=== PATIENT | female | born 1980 | race Caucasian/White ===

== ENCOUNTER 2017-03-12 01:43 | Emergency (ER) | payer BC ==
[2017-03-12] MEDS ORDERED: SODIUM CHLORIDE 0.9% 1,000 ML IV ONE (02:03)
[2017-03-12] MEDS ORDERED: diphenhydrAMINE 50 MG/ML 1 ML VIAL IVP STA (02:03)
[2017-03-12] MEDS ORDERED: METOCLOPRAMIDE 5 MG/ML 2 ML VIAL IVP STA (02:03)
[2017-03-12] MEDS ORDERED: KETOROLAC 30 MG/ML 1 ML VIAL IVP STA (02:03)
--- NOTE | 2017-03-12 02:09 | ED ---
Headache HPI - General Chief Complaint: Headache Stated Complaint: Migrane/nausea Time Seen by Provider: 03/12/17 01:54 Mode of arrival: ambulatory Limitations: no limitations - History of Present Illness Initial Comments: 37-year-old female patient present to emergency department today for complaints of migraine headache 3 days. Patient states that she does have a seven-year history of migraine headache. She states that her symptoms today are typical of her usual migraine pattern. She states that the pain has gradually worsened over the last 3 days. She states that she has pain in the occipital region that radiates forward into her eyes and face. She states that she has nausea, photosensitivity, and sound sensitivity. She states she does have flashes in her vision. Patient denies any recent fever, chills, shortness breath, chest pain, vomiting, diarrhea, back pain, numbness, tingling, dizziness, weakness, hematuria, dysuria, urinary urgency, urinary frequency, headache, or any other complaints. Patient states that she also has been constipated, has a flareup of her hemorrhoids, but is managing these conditions at home and is seeking treatment only for her migraine. - Related Data Home Medications Medication Instructions Recorded Confirmed No Known Home Medications [No 03/12/17 03/12/17 Known Home Medications] Allergies Allergy/AdvReac Type Severity Reaction Status Date / Time No Known Allergies Allergy Verified 03/12/17 01:52 Review of Systems ROS Statement: Those systems with pertinent positive or pertinent negative responses have been documented in the HPI. ROS Other: All systems not noted in ROS Statement are negative. Past Medical History Past Medical History: Hypertension History of Any Multi-Drug Resistant Organisms: None Reported Additional Past Surgical History / Comment(s): bilateral arthroscopic knee surgery. renal stent. Past Psychological History: No Psychological Hx Reported Smoking Status: Former smoker Past Alcohol Use History: None Reported Past Drug Use History: None Reported General Exam Limitations: no limitations Course Vital Signs 03/12/17 03/12/17 01:48 03:18 Temperature 97.6 F 97.8 F Pulse Rate 84 67 Respiratory 16 18 Rate Blood Pressure 179/111 131/75 O2 Sat by Pulse 98 96 Oximetry Medical Decision Making - Medical Decision Making 37-year-old male patient presented with chief complaint migraine headache. Patient symptoms are consistent with her usual migraine pattern. Patient states that nothing she takes at home [id number] works for her headaches. She was given IV fluids, Benadryl, Toradol, and Reglan for pain which did improve her symptoms. Patient is now rating her pain at a 1 out of 10 on the scale. Patient states that she is ready to go home and get some rest. She is instructed father primary care physician for recheck 1-2 days. She is instructed to return here immediately for any new, worsening, or concerning symptoms. She verbalizes understanding and agrees with this plan. Disposition Clinical Impression: Migraine headache Disposition: HOME SELF-CARE Condition: Good Instructions: Migraine Headache (ED) Additional Instructions: Increase fluids. Follow up with your primary care physician for recheck in 1-2 days. Return here immediately for any new, worsening, or concerning symptoms. Referrals: Roger Tarango DO [Primary Care Provider] - 1-2 days Time of Disposition: 03:19
[2017-03-12 03:23] VITALS: BP 131/75; PULSE 67; RESP 18; TEMP 97.8
== END 2017-03-12 03:27 | disposition home or self-care (01) ==
LOC: EC 01:43
DX: G43.909 Migraine, unspecified, not intractable, without status migrainosus (principal); R11.0 Nausea; Z87.891 Personal history of nicotine dependence
CPT/HCPCS: 99283; 96374; 96375 ×2; 96361; J1200; J2765; J1885

== ENCOUNTER → 2017-09-28 | Outpatient (CLI) | payer BC ==
--- NOTE | 2017-09-28 15:58 | XR ---
EXAMINATION TYPE: XR knee complete RT DATE OF EXAM: 09/28/2017 COMPARISON: NONE HISTORY: Pain TECHNIQUE: Four views are submitted. FINDINGS: There is mild diffuse osteopenia. Narrowing of the medial compartment of the knee joint seen. Small a mount of fluid in the suprapatellar bursa. No erosive changes. IMPRESSION: 1. Small amount of fluid in the suprapatellar bursa. 2. Mild arthritic changes.
--- NOTE | 2017-09-28 15:59 | XR ---
EXAMINATION TYPE: XR shoulder complete RT DATE OF EXAM: 09/28/2017 COMPARISON: NONE HISTORY: Pain TECHNIQUE: Three views are submitted. FINDINGS: The osseous structures are intact. There is no acute fracture or dislocation. The AC joint is maint ained. IMPRESSION: 1. No acute process.
== END | disposition home or self-care (01) ==
LOC: RADXRYALE 15:05
PROVIDERS: ATTEND Physician Assistant Medical
DX: M17.11 Unilateral primary osteoarthritis, right knee (principal); M25.511 Pain in right shoulder

== ENCOUNTER → 2018-05-01 | Outpatient (CLI) | payer OTHER ==
--- NOTE | 2018-05-01 10:19 | MM ---
Reason for exam: screening (asymptomatic). Baseline mammogram. Physical Findings: Nurse did not find any significant physical abnormalities on exam. MG Screening Mammo w CAD Bilateral CC and MLO view(s) were taken. There are scattered fibroglandular densities. Finding #1: There is a typically benign equal density (isodense), circumscribed oval mass located 15 cm from the nipple in the upper outer quadrant, middle position of the left breast. Finding #2: There are typically benign spherical calcifications in both breasts. Lymph node upper outer quadrant right breast. These results were verbally communicated with the patient and result sheet given to the patient on 05/01/18. ASSESSMENT: Probably benign, BI-RAD 3 RECOMMENDATION: Follow-up diagnostic mammogram of the left breast in 6 months.
== END | disposition home or self-care (01) ==
LOC: RADMAMWWP 09:33
PROVIDERS: ATTEND Family Medicine
DX: Z12.31 Encounter for screening mammogram for malignant neoplasm of breast (principal)
CPT/HCPCS: 77067

== ENCOUNTER → 2018-12-01 | Outpatient (CLI) | payer OTHER ==
[2018-12-01 09:56] LABS: Basophils % (A) 1 %; Eosinophils # (A) 0.1 k/uL (0-0.7); Eosinophils % (A) 1 %; HCT 42.4 % (34.0-46.0); HGB 13.5 gm/dL (11.4-16.0); Lymphocytes # (A) 1.8 k/uL (1.0-4.8); Lymphocytes % (A) 26 %; MCH 28.8 pg (25.0-35.0); MCHC 31.8 g/dL (31.0-37.0); MCV 90.4 fL (80.0-100.0); Mean Platelet Volume 6.8; Monocytes # (A) 0.4 k/uL (0-1.0); Monocytes % (A) 6 %; Neutrophils # (A) 4.7 k/uL (1.3-7.7); Neutrophils % (A) 65 %; Platelet Count 316 k/uL (150-450); RBC 4.69 m/uL (3.80-5.40); RDW 13.7 % (11.5-15.5); WBC 7.1 k/uL (3.8-10.6)
== END ==
LOC: LABPAT 09:20
PROVIDERS: ATTEND Orthopaedic Surgery
DX: Z01.812 Encounter for preprocedural laboratory examination (principal); M23.91 Unspecified internal derangement of right knee
CPT/HCPCS: 80051; 85025

== ENCOUNTER 2018-12-14 09:47 | Day surgery (SDC) | payer OTHER ==
[2018-12-11 09:47] VITALS: BMI 37.5
--- NOTE | 2018-12-13 09:17 | HP ---
HISTORY AND PHYSICAL CHIEF COMPLAINT: Right knee pain. 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 She notes pain and catching along with giving way. She notes it does limit her normal activities. She has tried medications and injections with only partial temporary relief. She does have a history of arthroscopy 18 years ago. PAST MEDICAL HISTORY: Significant for asthma. PAST SURGICAL HISTORY: Significant for bilateral knee arthroscopy. CURRENT MEDICATIONS: Current medications include inhalers. ALLERGIES: She denies drug allergies. FAMILY HISTORY: Significant for cancer. SOCIAL HISTORY: Negative for current tobacco or alcohol use. REVIEW OF SYSTEMS: Sixteen-point review of systems otherwise reviewed and is noncontributory. PHYSICAL EXAMINATION: On examination, the patient is approximately 5 feet, 8 inches, 240 pounds of endomorphic habitus. HEENT exam is nonfocal. Neck is supple. She has painless passive motion of the right hip. Straight leg raise is negative. Active motion right knee -6 to 130 degrees of flexion. She is tender about the lateral joint line and lateral patellar facet. Collaterals are stable, Jarek's negative, Linda's is equivocal. She has some pain with patellofemoral compression. Patellar glide 2 quadrants medial and lateral. Tilt is +5. MRI report for the right knee shows evidence of a patellar chondral injury and degenerative changes in the patellofemoral compartment. IMPRESSION: Internal derangement right knee with possible patellar chondral injury-symptomatic. RECOMMENDATIONS: I talked to the patient at length regarding her condition along with treatment options. At this point, she is having persistent pain and mechanical symptoms despite adequate conservative measures. After thorough discussion, she opts to proceed with surgery. We will plan to proceed with surgical intervention. We will plan to proceed with arthroscopic evaluation with possible patellar chondroplasty. Risks and benefits were discussed at length in layman's terms. We will likely perform that as outpatient procedure. MMODL / IJN: [id number] /
[~2018-12-14 09:47] MED LIST: DEXAMETHASONE SOD PHOSPHATE 10 MG/ML 1 ML VIAL IV ONE; LACTATED RINGERS 1,000 ML IV SCH; MIDAZOLAM 2 MG/2 ML VIAL IV PRN; ONDANSETRON 4 MG/2 ML VIAL IVP ONE; SCOPOLAMINE 1.5MG/72HR PATCH TRANSDERM ONE; ceFAZolin IN SWFI 2 GM/20 ML SYRINGE IVP ONE
[2018-12-14 10:06] VITALS: RESP 16; TEMP 98.4
[2018-12-14] MEDS ORDERED: LIDOCAINE 1% 20 ML VIAL (10MG/ML) FOR IV START INTRADERMA ONE (10:11)
[2018-12-14] MEDS ORDERED: PROPOFOL 10 MG/ML 20 ML VIAL IV ONE (11:32)
[2018-12-14] MEDS ORDERED: LIDOCAINE 1% INJ 10MG/ML (20 ML MDV) ONE (11:32)
[2018-12-14] MEDS ORDERED: fentaNYL (PF) 50 MCG/ML 2 ML AMP ONE (11:32)
[2018-12-14] MEDS ORDERED: MIDAZOLAM 2 MG/2 ML VIAL ONE (11:32)
[2018-12-14] MEDS ORDERED: EPINEPHrine (PF) 1 ML in SODIUM CHLORIDE 0.9% IRRIGATIO 3,000 ML IRRIGATION ONE ×4 (11:53)
--- NOTE | 2018-12-14 12:19 | P.OP ---
Date of Procedure: 12/14/18 Preoperative Diagnosis: Right knee internal derangement Postoperative Diagnosis: Right knee grade 2 chondral injury lateral portion medial tibial plateau/grade 3/4 chondral injury lateral patella facet/reactive synovitis of the medial, lateral, and patellofemoral compartments Procedure(s) Performed: Right knee arthroscopic medial tibial chondrectomy, patellar chondroplasty, partial synovectomy of the medial, lateral, and patellofemoral compartments. Anesthesia: GETA Surgeon: Abhijeet Fox Estimated Blood Loss (ml): 10 Pathology: none sent Condition: stable Disposition: PACU Indications for Procedure: Patient's a 38-year-old female who presents with progressive right knee pain and mechanical symptoms despite conservative measures. A discussion the risks and benefits of operative intervention versus continued conservative measures. She opted to proceed with surgery. Operative risks to include infection, neurovascular injury, development of blood clots, possible incomplete resolution of symptoms, possible worsening symptoms and need for subsequent procedures was discussed. Informed consent was obtained. Operative Findings: As below Description of Procedure: The patient was brought to the operating room, and after induction of general anesthesia examined the right knee. Collaterals were stable, Jarek was negative, and posterior drawer was negative. The right lower extremity was prepped and draped in a normal fashion. A superior lateral portal was made through a 3 mm skin incision superior and lateral to the patella. This was used for outflow. A lateral portal was made through a 5 mm vertical skin incision lateral to the patella tendon above the joint line. Diagnostic arthroscopy was performed. On inspection of the medial compartment, no significant meniscal pathology was noted. Reactive synovitis involving the anterior medial compartment was debrided with a motorized shaver. A grade 3 chondral injury was noted involving the lateral portion of the medial tibial plateau. There was a loose chondral fragment that was debrided back to a stable base with a motorized shaver. On inspection of the notch, the anterior cruciate ligament appeared to be intact. On inspection of the lateral compartment no significant meniscal pathology was noted. There was reactive synovitis in the anterolateral compartment there was debrided with a motorized shaver. On inspection of the patellofemoral articulation, a grade 3/4 chondral injury was noted involving lateral patellar facet. There was a loose chondral fragment debrided back with a motorized shaver to a stable base. Reactive synovitis involving the patellofemoral articulation was debrided with a motorized shaver. The gutters were clear debris. The knee was then thoroughly irrigated. The portals were closed with Steri-Strips. A sterile dressing was applied in addition to a compression stocking. The patient was awoken from general anesthesia and transferred to recovery room in good condition. Blood loss was estimated at 10 mL. No complications were incurred.
[2018-12-14] MEDS: HYDROmorphone 0.5 MG/0.5 ML SYRINGE IVP PRN ×4 (12:30→12:52)
[2018-12-14] MEDS ORDERED: MEPERIDINE 50 MG/ML SYRINGE IVP ONE (13:01)
[2018-12-14] MEDS ORDERED: HYDROcodone/APAP 5-325MG 1 EACH TAB PO ONE (13:48)
[2018-12-14 14:13] VITALS: BP 133/84; PULSE 73
== END 2018-12-14 14:33 | disposition home or self-care (01) ==
LOC: OR 09:47
PROVIDERS: ATTEND Orthopaedic Surgery
DX: S89.91XA Unspecified injury of right lower leg, initial encounter (principal); M65.861 Other synovitis and tenosynovitis, right lower leg; M17.11 Unilateral primary osteoarthritis, right knee; G43.909 Migraine, unspecified, not intractable, without status migrainosus; J45.909 Unspecified asthma, uncomplicated; Z87.891 Personal history of nicotine dependence; Z79.899 Other long term (current) drug therapy; Z87.442 Personal history of urinary calculi
CPT/HCPCS: 81025; 29876; J2250; J2175; J0171; J2001; J3010; J2704; J1170; J0690

== ENCOUNTER → 2018-12-20 | Outpatient (CLI) | payer OTHER ==
--- NOTE | 2018-12-21 09:09 | MM ---
Reason for exam: follow-up at short interval from prior study. Last mammogram was performed 8 months ago. Physical Findings: Nurse Summary: 1cm nodule in the right breast at 11 o'clock (nurse mj). MG Diagnostic Mammo LT w CAD CC, MLO, and XCCM view(s) were taken of the left breast. Prior study comparison: May 01, 2018, bilateral MG screening mammo w CAD. There are scattered fibroglandular densities. Benign appearing calcifications in the left breast. Left intrammary lymph nodes. These results were verbally communicated with the patient and result sheet given to the patient on 12/20/18. ASSESSMENT: Incomplete: need additional imaging evaluation, BI-RAD 0 RECOMMENDATION: Ultrasound. (right palpable per nursing)
--- NOTE | 2018-12-21 09:10 | USB ---
Reason for exam: additional evaluation requested from abnormal screening. US Breast Limited RT Right limited breast ultrasound including focal area of concern, retroareolar and axilla demonstrates a 0.5 x 0.3 x 0.4cm hypoechoic lesion at 11 o'clock. Minimal increase through transmission suggesting a small cyst. Precautionary 6 month follow up will be performed. These results were verbally communicated with the patient and result sheet given to the patient on 12/20/18. ASSESSMENT: Probably benign, BI-RAD 3 RECOMMENDATION: Follow-up diagnostic mammogram of both breasts in 6 months. Back on schedule. Ultrasound of the right breast in 6 months.
== END | disposition home or self-care (01) ==
LOC: RADMAMWWP 15:15
DX: R92.8 Other abnormal and inconclusive findings on diagnostic imaging of breast (principal)
CPT/HCPCS: 77065

== ENCOUNTER → 2019-06-21 | Outpatient (CLI) | payer OTHER ==
--- NOTE | 2019-06-21 09:30 | MM ---
Reason for exam: follow-up at short interval from prior study. Last mammogram was performed 6 months ago. Physical Findings: Nurse did not find any significant physical abnormalities on exam. MG Diagnostic Mammo w CAD DAVID Bilateral CC and MLO view(s) were taken. Prior study comparison: December 20, 2018, left breast MG diagnostic mammo LT w CAD. May 01, 2018, bilateral MG screening mammo w CAD. There are scattered fibroglandular densities. There are benign appearing round dystrophic calcifications bilaterally. There is chronic nodularity bilaterally. There is no new dominant lesion. These results were verbally communicated with the patient and result sheet given to the patient on 06/21/19. ASSESSMENT: Benign, BI-RAD 2 RECOMMENDATION: Routine screening mammogram of both breasts in 1 year.
--- NOTE | 2019-06-21 09:32 | USB ---
Reason for exam: follow-up at short interval from prior study. US Breast Limited RT Right limited breast ultrasound including focal area of concern, retroareolar and axilla demonstrates no cystic or solid lesion seen. These results were verbally communicated with the patient and result sheet given to the patient on 06/21/19. ASSESSMENT: Negative, BI-RAD 1 RECOMMENDATION: Routine screening mammogram of both breasts in 1 year.
== END | disposition home or self-care (01) ==
LOC: RADMAMWWP 08:03
DX: R92.8 Other abnormal and inconclusive findings on diagnostic imaging of breast (principal)
CPT/HCPCS: 77066

== ENCOUNTER 2019-07-18 14:54 | Emergency (ER) | payer OTHER ==
[2019-07-18 15:31] VITALS: TEMP 98.7
[2019-07-18] MEDS ORDERED: SODIUM CHLORIDE 0.9% 1,000 ML IV STA (17:31)
[2019-07-18] MEDS ORDERED: KETOROLAC 30 MG/ML 1 ML VIAL IVP STA (17:31)
[2019-07-18] MEDS ORDERED: diphenhydrAMINE 50 MG/ML 1 ML VIAL IVP STA (17:31)
[2019-07-18] MEDS ORDERED: METOCLOPRAMIDE 5 MG/ML 2 ML VIAL IVP STA (17:31)
--- NOTE | 2019-07-18 19:14 | ED ---
General Adult HPI - General Chief complaint: Headache Stated complaint: migraine Time Seen by Provider: 07/18/19 16:54 Source: patient, RN notes reviewed, old records reviewed Mode of arrival: ambulatory Limitations: no limitations - History of Present Illness Initial comments: 39-year-old female patient with past history of migraine headaches been signifi cantly migraine headache. Patient reported had a migraine headache for approximately last 3 days. Denies any headache of life. Denies any red flag symptoms. Reports that symptoms identical to migraine headaches of the past. Describes it as a left frontal headache. Denies a chance of being . Reports that she has had a mild waxing and waning aoura.. Systemic: Pt denies fatigue, fever/chills, rash. Pt denies weakness, night sweats, weight loss. Neuro: Pt denies syncope or pre-syncope. HEENT: Pt denies ocular discharge or irritation, otalgia, rhinorrhea, pharyngitis or notable lymphadenopathy. Cardiopulmonary: Pt denies chest pain, SOB, heart palpitations, dyspnea on exertion. Abdominal/GI: Pt denies abdominal pain, n/v/d. : Pt denies dysuria, burning w/ urination, frequency/urgency. Denies new onset urinary or bowel incontinence. MSK: Pt denies myalgia, loss of strength or function in extremities. Neuro: Pt denies new onset weakness, paresthesias. - Related Data Home Medications Medication Instructions Recorded Confirmed Azelastine HCl [Astepro] 1 spray NASAL DAILY 12/11/18 12/11/18 Cholecalciferol (Vitamin D3) 2,000 unit PO DAILY 12/11/18 12/11/18 [Vitamin D3] Mometasone/Formoterol [Dulera 200 1 dose INHALATION DAILY 12/11/18 12/11/18 Mcg/5 Mcg Inhaler] Propranolol- Dose Unknown 1 each PO DAILY 12/11/18 Previous Rx's Medication Instructions Recorded Hydrocodone/Acetaminophen [[place] 1 each PO Q6HR PRN #21 tab 12/14/18 5-325] Allergies Allergy/AdvReac Type Severity Reaction Status Date / Time Poultry Allergy Anaphylaxis Verified 12/14/18 09:59 Review of Systems ROS Statement: Those systems with pertinent positive or pertinent negative responses have been documented in the HPI. ROS Other: All systems not noted in ROS Statement are negative. Past Medical History Past Medical History: Hypertension History of Any Multi-Drug Resistant Organisms: None Reported Additional Past Surgical History / Comment(s): bilateral arthroscopic knee surgery. renal stent. Past Psychological History: No Psychological Hx Reported Smoking Status: Never smoker Past Alcohol Use History: Occasional Past Drug Use History: None Reported General Exam - General Exam Comments Initial Comments: Constitutional: NAD, AOX3, Pt has pleasant affect. HEENT: NC/AT, trachea midline, neck supple, no lymphadenopathy. Posterior pharynx non erythematous, without exudates. External ears appear normal, without discharge. Mucous membranes moist. Eyes PERRLA, EOM intact. There is no scleral icterus. No pallor noted. Cardiopulmonary: RRR, no murmurs, rubs or gallops, no JVD noted. Lungs CTAB in anterior and posterior dumont. No peripheral edema. Abdominal exam: Abdomen soft and non-distended. Abdomen non-tender to palpation in all 4 quadrants. Bowel sounds active in LLQ. No hepatosplenomegaly. No ecchymosis Neuro: CN II-XII intact. No nuchal rigidity. No raccon eyes, no bauman sign, no hemotympanum. No cervical spinal tenderness. NIH 0. MSK: No posterior calf tenderness bilaterally, homans sign negative bilaterally. Posterior tibialis and radial pulse +2 bilaterally. Sensation intact in upper and lower extremities. Full active ROM in upper and lower extremities, 5/5 stregnth. Limitations: no limitations Course Vital Signs 07/18/19 15:30 Temperature 98.7 F Pulse Rate 89 Respiratory 20 Rate Blood Pressure 129/96 O2 Sat by Pulse 98 Oximetry Medical Decision Making - Medical Decision Making 39-year-old female patient with past history of migraine headaches been significantly migraine headache. Patient reported had a migraine headache for approximately last 3 days. Denies any headache of life. Denies any red flag symptoms. Reports that symptoms identical to migraine headaches of the past. Describes it as a left frontal headache. Denies a chance of being . Reports that she has had a mild waxing and waning aoura. Pt VSS, afebrile. Physical exam displayed: CN II-XII intact. No nuchal rigidity. No raccon eyes, no bauman sign, no hemotympanum. No cervical spinal tenderness. NIH 0. Patient declined intracranial imaging. Patient administered headache cocktail which resolved headache. Patient is uncomfortable for discharge. We'll discharge her follow up with primary care provider and neurologist tomorrow. Return to ER if condition worsens. Case discussed with Dr. Rodriguez. Disposition Clinical Impression: Migraine headache Disposition: HOME SELF-CARE Condition: Stable Instructions (If sedation given, give patient instructions): Acute Headache (ED) Additional Instructions: Follow-up with primary care provider and neurologist tomorrow, return to ER if condition worsens. Is patient prescribed a controlled substance at d/c from ED?: No Referrals: [facility],Clinic [Primary Care Provider] - 1-2 days
[2019-07-18 19:32] VITALS: BP 148/99; PULSE 88; RESP 18
== END 2019-07-18 19:27 | disposition home or self-care (01) ==
LOC: EC 14:54
DX: G43.909 Migraine, unspecified, not intractable, without status migrainosus (principal); I10 Essential (primary) hypertension; Z53.29 Procedure and treatment not carried out because of patient's decision for other reasons; Z79.51 Long term (current) use of inhaled steroids; Z79.899 Other long term (current) drug therapy; Z91.018 Allergy to other foods
CPT/HCPCS: 99283; 96374; 96375 ×2; 96361; J1200; J2765; J1885

== ENCOUNTER 2019-08-25 10:40 | Emergency (ER) | payer OTHER ==
[2019-08-25] MEDS ORDERED: ACETAMINOPHEN TAB 500 MG TAB PO STA (11:28)
--- NOTE | 2019-08-25 11:30 | ED ---
General Adult HPI - General Chief complaint: Upper Respiratory Infection Stated complaint: Body Aches, Cough,Congestion Time Seen by Provider: 08/25/19 11:05 Source: patient, RN notes reviewed Mode of arrival: ambulatory Limitations: no limitations - History of Present Illness Initial comments: Patient is a pleasant 39-year-old female presenting to the emergency Department with complaints of possible flu. Patient states for close contacts at work And diagnosed with influenza A. Patient states she has been coughing. Patient has congestion in her chest and her nose. Patient has clear rhinorrhea. Patient has fatigue and body aches. Patient states cough has occasional yellow sputum production. Patient does have asthma and she feels this may be acting up a little bit on her. No leg pain or leg swelling. - Related Data Home Medications Medication Instructions Recorded Confirmed Azelastine HCl [Astepro] 1 spray NASAL DAILY 12/11/18 12/11/18 Cholecalciferol (Vitamin D3) 2,000 unit PO DAILY 12/11/18 12/11/18 [Vitamin D3] Mometasone/Formoterol [Dulera 200 1 dose INHALATION DAILY 12/11/18 12/11/18 Mcg/5 Mcg Inhaler] Propranolol- Dose Unknown 1 each PO DAILY 12/11/18 Previous Rx's Medication Instructions Recorded Hydrocodone/Acetaminophen [[place] 1 each PO Q6HR PRN #21 tab 12/14/18 5-325] Oseltamivir [Tamiflu] 75 mg PO Q12HR #10 cap 08/25/19 Allergies Allergy/AdvReac Type Severity Reaction Status Date / Time Poultry Allergy Anaphylaxis Verified 08/25/19 10:54 Review of Systems ROS Statement: Those systems with pertinent positive or pertinent negative responses have been documented in the HPI. ROS Other: All systems not noted in ROS Statement are negative. Constitutional: Reports: fever (Patient feels she may have had a fever yesterday), chills Eyes: Denies: eye pain ENT: Denies: ear pain Respiratory: Reports: cough Cardiovascular: Denies: chest pain Endocrine: Reports: fatigue Gastrointestinal: Denies: abdominal pain Genitourinary: Denies: dysuria Musculoskeletal: Denies: back pain Skin: Denies: rash Neurological: Denies: weakness Past Medical History Past Medical History: Hypertension Additional Past Medical History / Comment(s): migraines History of Any Multi-Drug Resistant Organisms: None Reported Additional Past Surgical History / Comment(s): bilateral arthroscopic knee surgery. renal stent. Past Psychological History: No Psychological Hx Reported Smoking Status: Never smoker Past Alcohol Use History: Occasional Past Drug Use History: None Reported General Exam Limitations: no limitations General appearance: alert, in no apparent distress Head exam: Present: normocephalic Eye exam: Present: normal appearance, PERRL ENT exam: Present: normal oropharynx Neck exam: Present: normal inspection Respiratory exam: Present: normal lung sounds bilaterally Cardiovascular Exam: Present: regular rate, normal rhythm GI/Abdominal exam: Present: soft. Absent: tenderness Extremities exam: Present: normal inspection. Absent: pedal edema, calf tenderness Neurological exam: Present: alert Psychiatric exam: Present: normal affect, normal mood Skin exam: Present: normal color Course Vital Signs 08/25/19 10:51 Temperature 98.1 F Pulse Rate 107 H Respiratory 18 Rate Blood Pressure 135/97 O2 Sat by Pulse 98 Oximetry - Reevaluation(s) Reevaluation #1: 08/25/19 11:30 Temperature checked by myself and 99.4F Medical Decision Making - Radiology Data Radiology results: image reviewed (Chest x-ray shows no acute process) Disposition Clinical Impression: Influenza Disposition: HOME SELF-CARE Condition: Stable Instructions (If sedation given, give patient instructions): Influenza (ED) Additional Instructions: Please follow-up with primary care physician in the next couple days for recheck. Return for difficulty breathing, worsening symptoms or other concerns. Prescription sent to [facility]. Prescriptions: Oseltamivir [Tamiflu] 75 mg PO Q12HR #10 cap Is patient prescribed a controlled substance at d/c from ED?: No Referrals: [facility],Clinic [Primary Care Provider] - 1-2 days Time of Disposition: 12:12
--- NOTE | 2019-08-25 12:10 | XR ---
EXAMINATION TYPE: XR chest 2V DATE OF EXAM: 08/25/2019 HISTORY: cough. REFERENCE: NONE. FINDINGS: The lungs are clear. Pleural space are clear. Heart size is upper limits of normal. IMPRESSION: NO ACTIVE INTRATHORACIC DISEASE.
[2019-08-25] MEDS ORDERED: OSELTAMIVIR 75 MG CAP PO STA (12:19)
[2019-08-25 12:32] VITALS: BP 127/79; PULSE 96; RESP 16; TEMP 97.9
== END 2019-08-25 12:31 | disposition home or self-care (01) ==
LOC: EC 10:40
DX: J11.1 Influenza due to unidentified influenza virus with other respiratory manifestations (principal); Z79.51 Long term (current) use of inhaled steroids; Z79.899 Other long term (current) drug therapy; Z91.018 Allergy to other foods; Z87.09 Personal history of other diseases of the respiratory system
CPT/HCPCS: 71046; 99283

== ENCOUNTER → 2021-03-09 | Outpatient (CLI) | payer OTHER ==
--- NOTE | 2021-03-11 14:08 | MM ---
Reason for exam: screening (asymptomatic). Last mammogram was performed 1 year and 9 months ago. Physical Findings: A clinical breast exam by your physician is recommended on an annual basis and results should be correlated with mammographic findings. MG Screening Mammo w CAD Bilateral CC and MLO view(s) were taken. Prior study comparison: June 21, 2019, bilateral MG diagnostic mammo w CAD DAVID. May 01, 2018, bilateral MG screening mammo w CAD. There are scattered fibroglandular densities. There is chronic nodularity in the left breast. No significant changes when compared with prior studies. ASSESSMENT: Benign, BI-RAD 2 RECOMMENDATION: Routine screening mammogram of both breasts in 1 year.
== END | disposition home or self-care (01) ==
LOC: RADMAMWWP 13:42
PROVIDERS: ATTEND Nurse Practitioner Acute Care
DX: Z12.31 Encounter for screening mammogram for malignant neoplasm of breast (principal)
CPT/HCPCS: 77067

== ENCOUNTER → 2022-03-10 | Outpatient (CLI) | payer OTHER ==
--- NOTE | 2022-03-11 19:03 | MM ---
Reason for Exam: Screening (asymptomatic). Last screening mammogram was performed 12 month(s) ago. Patient History: Menarche at age 11. First Full-Term at age 21. Risk Values: Trisha 5 year model risk: 0.6%. NCI Lifetime model risk: 8.8%. Prior Study Comparison: 12/20/2018 Left Diagnostic Mammogram, [facility]. 06/21/2019 Bilateral Diagnostic Mammogram, [facility]. 03/09/2021 Bilateral Screening Mammogram, [facility]. Tissue Density: The breast tissue is almost entirely fat. Findings: Analyzed By CAD. There is no suspicious group of microcalcifications or new suspicious mass in either breast. Overall Assessment: Negative, BI-RAD 1 Management: Screening Mammogram of both breasts in 1 year. A clinical breast exam by your physician is recommended on an annual basis and results should be correlated with mammographic findings. Electronically signed and approved by: Óscar Day DO
== END | disposition home or self-care (01) ==
LOC: RADMAMWWP 08:57
DX: Z12.31 Encounter for screening mammogram for malignant neoplasm of breast (principal)
CPT/HCPCS: 77067

== ENCOUNTER → 2023-03-14 | Outpatient (CLI) | payer OTHER ==
--- NOTE | 2023-03-16 08:42 | MM ---
Reason for Exam: Screening (asymptomatic). Last screening mammogram was performed 12 month(s) ago. Patient History: Menarche at age 11. First Full-Term at age 21. Currently using Hormonal Contraceptives, for 2 months. Last menstrual period: 02/28/2023 Risk Values: Trisha 5 year model risk: 0.7%. NCI Lifetime model risk: 8.7%. Prior Study Comparison: 06/21/2019 Bilateral Diagnostic Mammogram, [facility]. 03/09/2021 Bilateral Screening Mammogram, [facility]. 03/10/2022 Bilateral MG screening mammo w CAD, [facility]. Tissue Density: There are scattered fibroglandular densities. Findings: Analyzed By CAD. There is no suspicious group of microcalcifications or new suspicious mass in either breast. Overall Assessment: Negative, BI-RAD 1 Management: Screening Mammogram of both breasts in 1 year. . Patient should continue monthly self-breast exams. A clinical breast exam by your physician is recommended on an annual basis. This exam should not preclude additional follow-up of suspicious palpable abnormalities. Note on Trisha scores and lifetime risk: 1. A Trisha score greater than 3% is considered moderate risk. If this is the case, consider specialist referral to assess eligibility for a risk reducing agent. 2. If overall lifetime risk for the development of breast cancer is 20% or higher, the patient may qualify for future screening with alternating mammogram and breast MRI. Electronically signed and approved by: Rashel Niño M.D. Radiologis
== END | disposition home or self-care (01) ==
LOC: RADMAMWWP 10:38
PROVIDERS: ATTEND Family Medicine
DX: Z12.31 Encounter for screening mammogram for malignant neoplasm of breast (principal)
CPT/HCPCS: 77067

== ENCOUNTER → 2024-03-15 | Outpatient (CLI) | payer OTHER ==
--- NOTE | 2024-03-19 07:58 | MM ---
Reason for Exam: Screening (asymptomatic). Last screening mammogram was performed 12 month(s) ago. Patient History: Menarche at age 11. First Full-Term at age 21. Currently using Hormonal Contraceptives, for 2 months. Risk Values: Trisha 5 year model risk: 0.7%. NCI Lifetime model risk: 8.6%. Prior Study Comparison: 03/09/2021 Bilateral Screening Mammogram, [facility]. 03/10/2022 Bilateral MG screening mammo w CAD, [facility]. 03/14/2023 Bilateral MG screening mammo w CAD, [facility]. Tissue Density: The breasts are heterogeneously dense, which may obscure small masses. Findings: Analyzed By CAD. There is no suspicious group of microcalcifications or new suspicious mass in either breast. Benign calcifications. Stable chronic nodularity. Overall Assessment: Benign, BI-RAD 2 Management: Screening Mammogram of both breasts in 1 year. . Patient should continue monthly self-breast exams. A clinical breast exam by your physician is recommended on an annual basis. This exam should not preclude additional follow-up of suspicious palpable abnormalities. Note on Trisha scores and lifetime risk: 1. A Trisha score greater than 3% is considered moderate risk. If this is the case, consider specialist referral to assess eligibility for a risk reducing agent. 2. If overall lifetime risk for the development of breast cancer is 20% or higher, the patient may qualify for future screening with alternating mammogram and breast MRI. [facility], , 03/19/2024 7:55 AM. Electronically signed and approved by: Yanick Rodrigues M.D. Radiologis
== END | disposition home or self-care (01) ==
LOC: RADMAMWWP 10:04
PROVIDERS: ATTEND Family Medicine
DX: Z12.31 Encounter for screening mammogram for malignant neoplasm of breast
CPT/HCPCS: 77067